=== PATIENT | female | born 1995 ===

== ENCOUNTER 2020-06-20 10:36 | Emergency (ER) | payer OTHER ==
[~2020-06-20] VITALS: Ht 170.2 cm; Wt 54.0 kg
== END 2020-06-20 18:18 | disposition home or self-care (01) ==
LOC: ER 10:36
DX: R10.2 Pelvic and perineal pain (principal); Z03.818 Encounter for observation for suspected exposure to other biological agents ruled out

== ENCOUNTER 2025-03-30 14:15 | Outpatient (CLI) | payer OTHER | END 2025-03-30 14:16 | disposition home or self-care (01) | LOC: PRENATAL 14:15 | PROVIDERS: ATTEND Obstetrics & Gynecology Maternal & Fetal Medicine | DX: O44.00 Complete placenta previa NOS or without hemorrhage, unspecified trimester (principal); Z3A.21 21 weeks gestation of pregnancy ==

== ENCOUNTER → 2025-06-26 14:09 | Outpatient (CLI) | payer OTHER | END | disposition home or self-care (01) | LOC: PRENATAL 14:09 | PROVIDERS: ATTEND Obstetrics & Gynecology Maternal & Fetal Medicine | DX: O26.843 Uterine size-date discrepancy, third trimester (principal); O36.8130 Decreased fetal movements, third trimester, not applicable or unspecified; O99.013 Anemia complicating pregnancy, third trimester; Z3A.34 34 weeks gestation of pregnancy ==